=== PATIENT | male | born 1955 | race Caucasian/White ===

== ENCOUNTER → 2020-10-25 12:14 | Outpatient (CLI) | payer OTHER, MEDICAID, SELFPAY ==
--- NOTE | 2020-10-25 12:17 | DI.RAD.S_ITS ---
PROCEDURE: XR CHEST 2V INDICATIONS: cough TECHNIQUE: 2 views of the chest were acquired. COMPARISON: [facility] ([facility]), CR, XR CHEST 2V, 08/25/2020, 8:23. FINDINGS: Surgical changes and devices: None. Lungs and pleura: Lungs are clear. No pleural effusions or pneumothorax. Mediastinum: Mediastinal contours are normal. Heart size is normal. Bones and chest wall: No suspicious bony abnormalities. Soft tissues appear unremarkable. IMPRESSION: No acute disease. Dictated by: Lakhwinder Franz M.D. on 10/25/2020 at 13:10 Approved by: Lakhwinder Franz M.D. on 10/25/2020 at 13:11
== END ==
PROVIDERS: PCP Family Medicine; Referring Provider Internal Medicine Medical Oncology; Visit Provider Internal Medicine Medical Oncology
DX: R05 Cough (principal)
CPT/HCPCS: 71046

== ENCOUNTER → 2020-10-31 10:44 | Outpatient (CLI) | payer OTHER, MEDICAID, SELFPAY ==
--- NOTE | 2020-10-31 10:46 | DI.CT.S_ITS ---
PROCEDURE: CT CHEST ABD PEL W CON INDICATIONS: abdominal pain, night sweats, suspect lymphoma TECHNIQUE: After the administration of oral and intravenous contrast, axial sections acquired from the supraclavicular neck to the pubic symphysis. Coronal and sagittal reformats were performed. For radiation dose reduction, the following was used: automated exposure control, adjustment of mA and/or kV according to patient size. COMPARISON: [facility], CT, KIDNEY/ URETER/BLADDER, 07/27/2012, 9:03. FINDINGS: Image quality: Excellent. CHEST: Lower Neck: No enlarged lymph nodes. Thyroid: Within normal limits. Axillae: No enlarged lymph nodes. Chest Wall: Unremarkable. Lungs and Airways: No consolidation. Pulmonary nodules are as follows: Nodule 1: 4 mm pulmonary nodule, right lower lobe, image 220/4. Nodule 2: 7 mm pulmonary nodule, left upper lobe, image 112/4. 4 mm pulmonary nodule, right upper lobe, image 173/4. Pleura: No pneumothorax or pleural effusions. Heart: Heart size is normal. No pericardial effusion. Mild coronary artery calcifications. Thoracic Vessels: The aorta and pulmonary arteries demonstrate normal size. Mediastinum and Sherley: There is shotty mediastinal adenopathy. No definitely abnormally sized lymph nodes are identified. There are more lymph nodes than typically seen.. Esophagus: No wall thickening. No hiatal hernia. ABDOMEN: Liver: Diffusely inhomogeneous enhancement pattern without focal mass identified. Gallbladder: Mild diffuse gallbladder wall thickening, a nonspecific finding Biliary ducts: Unremarkable. Pancreas: Unremarkable. Spleen: Development of splenomegaly. The spleen now measures 17.9 cm and is fairly heterogeneous in appearance, suspicious for involvement by lymphoma. Adrenal Glands: Unremarkable. Kidneys and Ureters: Unremarkable. Stomach and Bowel: Stomach, small bowel loops, and colon are unremarkable. Peritoneum: Minimal free fluid in the pelvis. No free air. Ventral Wall: No hernia. Abdominal Nodes: Extensive abdominal adenopathy is present. Index lesions are as follows: Portacaval lymph node, image 74/3, 3.0 x 3.7 cm. Mesenteric lymph node, image 89/3, 2.3 x 4.7 cm. Precaval lymph node, image 93/3, 5.0 x 3.9 cm. Right lower quadrant mesenteric lymph node mass, image 99/3, 5.6 x 4.5 cm. Left periaortic lymph node, image 89/3, 2.2 x 2.2 cm. This is a suitable target for CT-guided biopsy. Vessels: Aorta and inferior vena cava are normal in size. PELVIS: Pelvic Organs: Unremarkable. Bladder: Unremarkable. Pelvic Nodes: No enlarged lymph nodes. Miscellaneous: No inguinal hernias are seen. Bones: No lytic or blastic bony lesions. Chronic bilateral L4 pars defects with grade 1 anterolisthesis of L4 on L5 measuring approximately 8 mm. IMPRESSION: 1. Findings are highly consistent with lymphoma. Findings include shotty mediastinal adenopathy, development of significant splenomegaly, multiple very enlarged mesenteric lymph nodes, portacaval adenopathy, and periaortic adenopathy. 2. The measured left periaortic lymph node would be a suitable target for CT-guided retroperitoneal lymph node biopsy for tissue diagnosis. 3. The liver has a diffusely heterogeneous in enhancement pattern. This is a subtle finding. An infiltrative process is not excluded. 4. Findings were discussed with the referring clinician. Dictated by: Dakota Ghotra M.D. on 10/31/2020 at 14:36 Approved by: Dakota Ghotra M.D. on 10/31/2020 at 15:17
[2020-10-31 11:37] LABS: Alanine Aminotransferase 174 IU/L (<50); Albumin 3.8 g/dL (3.5-5.0); Albumin Globulin Ratio 1.5 (1.0-2.8); Alkaline Phosphatase 447 U/L (38-126); Aspartate Aminotransferase 179 IU/L (17-59); BUN Creatinine Ratio 17.2 (6-22); Bilirubin Total 1.2 mg/dL (0.2-1.3); Blood Urea Nitrogen 17 mg/dL (9-20); Carbon Dioxide 24 mmol/L (22-32); Chloride 101 mmol/L (98-107); Estimated Glomerular Filt Rate > 60.0 mL/min (>60); Globulin 2.5 g/dL (1.7-4.1); Glucose 102 mg/dL (80-110); HEMOLYSIS < 15 (0-50); Lactate Dehydrogenase 636 U/L (313-618); Potassium 4.1 mmol/L (3.4-5.1); Sodium 134 mmol/L (137-145); Total Protein 6.3 g/dL (6.3-8.2)
[2020-10-31 11:44] LABS: Add Manual Diff / Slide Review NO; Basophils Absolute Auto 0 /uL (0-100); Eosinophils Absolute Auto 0 /uL (0-450); Eosinophils Percent Auto 0.5 % (2-4); Hematocrit 33.9 % (41-53); Hemoglobin 11.4 g/dL (13.5-17.5); Lymphocytes Absolute Auto 800 /uL (1100-4500); Lymphocytes Percent Auto 25.6 % (25-40); Mean Corpuscular HGB Conc 33.6 % (30-36); Mean Corpuscular Hemoglobin 29.4 PG (26-34); Mean Corpuscular Volume 87.6 fL (80-100); Monocytes Absolute Auto 700 /uL (0-900); Monocytes Percent Auto 21.9 % (3-14); Neutrophils Absolute Auto 1500 /uL (1500-7000); Platelet Count 197 X10^3/uL (150-400); Red Blood Cell Count 3.87 X10^6/uL (4.5-5.9); Red Cell Distribution Width 15.9 % (11.6-14.8)
[2020-10-31 12:42] LABS: Folate 12.1 ng/mL (2.76-20.0); Vitamin B12 723 pg/mL (239-931)
[2020-11-02 12:00] LABS: Immunoglobulin A, Serum 127 mg/dL (61-437); Immunoglobulin G,Serum 544 mg/dL (603-1613); Immunoglobulin M, Serum 27 mg/dL (20-172)
[2020-11-02 16:17] LABS: Albumin 3.2 g/dL (2.9-4.4); Alpha-1-Globulin 0.4 g/dL (0.0-0.4); Alpha-2-Globulin 0.8 g/dL (0.4-1.0); Gamma Globulin 0.6 g/dL (0.4-1.8); Globulin Total 2.8 g/dL (2.2-3.9)
== END ==
PROVIDERS: PCP Family Medicine; Referring Provider Internal Medicine Medical Oncology; Visit Provider Internal Medicine Medical Oncology
DX: R63.4 Abnormal weight loss (principal); D72.819 Decreased white blood cell count, unspecified
CPT/HCPCS: 36415; 71260; 74177; 80053; 82607; 82746; 82784; 83615; 84155; 84165; 85025; 86334; 88184; Q9967

== ENCOUNTER → 2020-11-07 14:13 | Outpatient (CLI) | payer OTHER, MEDICAID, SELFPAY ==
[2020-11-07 14:48] LABS: COVID19 -Nasal RAPID Negative (Negative)
== END ==
PROVIDERS: PCP Family Medicine; Visit Provider Surgery
DX: Z01.812 Encounter for preprocedural laboratory examination (principal); Z20.822 Contact with and (suspected) exposure to COVID-19
CPT/HCPCS: 87635; C9803

== ENCOUNTER 2020-11-08 06:38 | Day surgery (SDC) | payer OTHER, MEDICAID, SELFPAY ==
[2020-11-06 12:20] VITALS: BMI 26.6
[2020-11-08] VITALS (9 sets, daily range): BP systolic 92–133; BP diastolic 48–79; PULSE 71–95; RESP 10–16; TEMP 36.2–36.9; O2SAT 93–97; BMI 25.0
--- NOTE | 2020-11-08 | DI.RAD.S_ITS ---
PROCEDURE: XR CHEST 1V INDICATIONS: PORT A CATH TECHNIQUE: One view of the chest was acquired. COMPARISON: [facility], CR, XR CHEST 2V, 10/25/2020, 12:14. FINDINGS: Surgical changes and devices: Interval placement of right tunneled port device with distal tip projecting over the lower SVC. Lungs and pleura: Minimal streaky left basilar opacities likely representing atelectasis. No focal consolidations. Lungs are otherwise clear. No pleural effusions or pneumothorax. Mediastinum: Mediastinal contours appear normal. Heart size is normal. Bones and chest wall: No suspicious bony lesions. Overlying soft tissues appear unremarkable. IMPRESSION: Interval placement of right tunneled port device with the distal tip of the catheter projecting over the lower SVC. No pneumothorax. Minimal streaky left basilar opacities likely representing atelectasis. Dictated by: Sung Katz M.D. on 11/08/2020 at 10:29 Approved by: Sung Katz M.D. on 11/08/2020 at 10:31
--- NOTE | 2020-11-08 | PATH_ITS ---
[facility] Accession Number: [id number] . 01 Material submitted: . PART A: lymph node - ABDOMINAL MESENTERIC NODE PART B: lymph node - ABDOMINAL MESENTERIC NODE . 01 Diagnosis: A, B. Abdominal Mesenteric Lymph Nodes, Excision: T-cell/histocyte-rich Large B-cell Lymphoma, see microscopic description. V 11/16/2020 1441 Local . 01 Electronically signed: . Ilana Ahumada MD, Pathologist NPI- [id number] . 01 Gross description: . A. Received in formalin, labeled abdominal mesenteric node consists of a 2.5 x 2.0 x 0.8 cm hoover-pink disrupted fragment of soft tissue, which is serially sectioned and entirely submitted in cassettes A1-A3. B. Received in B fixative and consists of a 2.0 x 1.5 x 0.9 cm hoover fragment of soft tissue, which is inked blue, serially sectioned, and entirely submitted in cassettes B1-B2. . Also received is one fresh slide and one slide in reagent alcohol 95%, labeled abdominal mesenteric node. The slides are forwarded to histology. ([id number]) /[facility] 11/09/2020 1109 Local . 01 Microscopic: . Microscopic examination of the mesenteric lymph nodes reveals that the normal architecture is effaced by nodular lymphoid infiltrates composed of few dispersed large, atypical and pleomorphic lymphocytes embedded in a background of predominantly small lymphocytes (T-cell type, see below immunohistochemistry) and histiocytes. Those lymphoid nodules are by fibrosis. . To determine the origin (B cell, T cell, etc.) of those large atypical lymphocytes, immunostains are performed with the following results: . CD20 (blocks A1 and B2): Large atypical lymphocytes positive. PAX5 (blocks A1 and B2): Large atypical lymphocytes positive. OCT2 (block A1): Large atypical lymphocytes positive. BOB1 (block A1): Large atypical lymphocytes weakly positive. BCL6 (block A1): Large atypical lymphocytes positive. CD45 (block A1): Large atypical lymphocytes positive. CD15 (blocks A1 and B2): Large atypical lymphocytes negative (few scattered small granulocytes positive). CD30 (blocks A1 and B2): Large atypical lymphocytes negative (rare background activated lymphocytes positive). CD3 (blocks A1 and B2): Large atypical lymphocytes negative (background small lymphocytes positive, T-lymphocytes). CD10: Atypical large lymphocytes negative. CD4: Atypical large lymphocytes negative, background T lymphocytes predominantly positive. CD8: Atypical large lymphocytes negative, fewer background T lymphocytes positive. CD5: Atypical large lymphocytes negative (background T lymphocytes positive). CD7: Atypical large lymphocytes negative (background T lymphocytes positive). CD68: Background histiocytes positive. BUCKY: Large atypical lymphocytes negative. ALK1: Large atypical lymphocytes negative. CD21: Few residual follicular dendritic cells positive. Proliferation marker Ki-67 variably positive, approximately 20-30% (large atypical lymphocytes positive). STEVE in situ hybridization: Large atypical lymphocytes and background lymphocytes negative (with appropriate U6 RNA positive and negative controls). . In summary, the above immunohistochemistry, along with morphology supports the diagnosis of T-cell/histocyte-rich large B-cell lymphoma. . The large atypical lymphocyte immunohistochemical profile (CD20+/PAX5+/OCT2+/BOB1+/BCL6+) supports germinal center B-cell origin. . The atypical large lymphocytes are negative for CD15 and CD30; these results exclude the possibility of classical Hodgkin lymphoma. The atypical large lymphocytes are negative for the T-cell markers CD3, CD4, CD5, CD7, and CD8 (without loss of erickson T-cell antigen expression). These results do not support T-cell lymphoma. There are some CD4+ T-lymphocytes surrounding the large atypical B-cells. . Of note, there are few residual follicular dendritic cells present (highlighted by CD21 immunostain) raising the possibility that this large B-cell lymphoma may have transformed from nodular lymphocyte predominant Hodgkin lymphoma (rather than de faheem large B-cell lymphoma). . This case has also been reviewed by hematopathologist, Dr. Shanice Manzo, who agrees with the interpretation. . The case has been discussed, preliminary and final findings, with Dr. Musa Gillespie, on 11/13/20 and 11/16/2020, at 11:45 a.m. . . * This test was developed and its performance characteristics determined by [facility]. It has not been cleared or approved by the U.S. Food and Drug Administration. The FDA has determined that such clearance or approval is not necessary. This test is used for clinical purposes. It should not be regarded as investigational or for research. . 01 Pathologist provided ICD-10: C83.30 . 01 CPT . 777889, 909070, J79661, W48162, 449487, A19843 Performed at: 01 [facility] [address] [place] [address], [place], [place] [id number] MD Arvind Winslow MD Phone: [phone]
--- NOTE | 2020-11-08 07:11 | P.HP_ITS ---
History of Present Illness History of Present Illness Date Patient Seen: 11/08/20 Time Patient Seen: 07:11 Chief complaint: SDC Narrative: Alexander is a 65-year-old man referred by Oncology for Port-A-Cath placement and excisional biopsy of lymph node. It is suspected that he has lymphoma. He had a interventional radiology procedure to sample a periaortic lymph node but this was not successful and further lymph node tissue has been requested. He has never had previous abdominal surgery or an indwelling venous catheter. Patient History Medical History Complete tear of left rotator cuff History of seizure Leukopenia Surgical History H/O repair of rotator cuff Family & Social History Social History: household members spouse Tobacco & Substance use: Smoking Status Never smoker Meds Home Medications and Allergies Home Medications Medication Instructions Recorded Confirmed Type tadalafil 20 mg tablet 20 mg PO DAILY PRN 06/15/20 11/08/20 History Cough Syrup Wiith Codeine 1 cap PRN PRN 11/07/20 11/08/20 History Allergies Allergy/AdvReac Type Severity Reaction Status Date / Time No Known Drug Allergies Allergy Verified 11/08/20 06:54 Exam Narrative Exam Narrative: Constitutional-he is oriented to person, place and time. No appa rent distress Cardiovascular- regular rate, no peripheral edema Pulmonary-unlabored respiratory effort, no audible wheezing Abdominal-soft, non-tender, non-distended Musculoskeletal-no cyanosis or clubbing Neurological-nonfocal, normal strength throughout, Skin-warm and dry Assessment & Plan Assessment and plan (1) Lymphadenopathy: Status: Acute Assessment & Plan narrative: 65-year-old man with lymphadenopathy suspected lymphoma here for an diagnostic laparoscopy with excisional biopsy of abdominal lymph nodes and Port-A-Cath placement. Technical details of the procedure were discussed with the patient. Operative risks including bleeding, infection, damage to surrounding structures, device malfunction, intestinal injury were discussed. His questions have been answered he is in agreement with this plan. Will proceed. Time Spent With Patient Critical Care time: I spent a total of [] minutes of critical care time on this patient's care today; this time is exclusive of procedural time.
[2020-11-08] MEDS: LACTATED RINGERS 1,000 ML 100 ML IV ×2 (07:14→08:52)
[2020-11-08] MEDS: ACETAMINOPHEN 325 MG TABLET 975 MG PO (07:19)
[2020-11-08] MEDS: GABAPENTIN 300 MG CAPSULE PO (07:19)
[2020-11-08] MEDS: CEFAZOLIN 1 GM VIAL 2 GM IV (07:53)
--- NOTE | 2020-11-08 08:10 | SUR.OPER ---
Supine on padded OR bed, head on pillow, arms padded and tucked at sides, legs uncrossed, safety belt at thigh, tape over blanket over lower legs .
[2020-11-08] MEDS: BUPIVACAINE 0.25% (PF) VIAL 30 ML INJ (08:24)
[2020-11-08] MEDS: HEPARIN 5,000 UNIT, SODIUM CHLORIDE 0.9% 50 ML IV (08:25)
--- NOTE | 2020-11-08 09:47 | PM.OP.1 ---
Operative Date/Time/Diagnoses Date of procedure: 11/08/20 Time of procedure: 09:47 Pre-op diagnosis: Lymphadenopathy Post-op diagnosis: same Procedure & Clinicians Procedure: Port-A-Cath placement. Diagnostic laparoscopy excisional biopsy of mesenteric lymph node Same procedure as scheduled: Yes Indications: Presumed lymphoma. Referred for Port-A-Cath placement and biopsy of mesenteric lymph node Surgeon: Moses Salmeron Click Yes if Unassisted: Yes Anesthesia Type: General Operative Notes Findings: Tip of the catheter within the SVC. Mesenteric lymphadenopathy Specimen(s): other (Abdominal mesenteric lymph node) Estimated Blood Loss (mL): 30 Procedure in detail: Patient was brought to the operating room placed supine on table. Bilateral lower extremity compressive devices were applied. General anesthesia was induced and he was intubated with an LMA. He was then prepped and draped in usual sterile fashion. Time-out was performed ensure the correct patient procedure necessary equipment within the operating room. He received 2 g of Ancef prior to incision. Under ultrasound guidance the right internal jugular vein was accessed under direct visualization. The guidewire was then threaded through the needle. Its placement was then confirmed using fluoroscopy. The dilator was then placed over the guidewire. The catheter was then inserted through the sheath. Placement was again confirmed with fluoroscopy. A subcutaneous pocket was made in the right chest wall. The tunneler device was used to move the catheter from the neck to the chest pocket. The port was attached after it was primed with heparined saline. The port was tested to ensure that it flushed easily and had good blood return. The port was then secured to the underlying fascia using interupted 0 Prolene suture. Hemostasis was achieved. The wound was irrigated with sterile saline. The subcutaneous tissues were reapproximated with the 3 0 Vicryl and then skin closed with 4-0 Monocryl. The skin was sealed with Dermabond. The patient was then re-prepped and draped for the abdominal procedure. An infraumbilical incision was made the fascia was elevated incised the abdomen was entered atraumatically. A 10 mm balloon trocar blunt was then placed into the abdomen and pneumoperitoneum was established. A 5 mm port was then placed in the left lower quadrant and the suprapubic space. Inspection of the abdomen demonstrated no evidence of injury upon entry. There was significant mesenteric lymphadenopathy. Specifically mesentery for the small bowel. A point in the central abdomen was selected the mesentery was carefully skeletonized with the LigaSure. A sizable lymph node was identified and dissected out circumferentially careful to preserve the blood supply to the supplied small bowel. Mesenteric node was entirely excised and then was removed from the abdomen using the Endo-Catch. Hemostasis was observed of the abdomen was irrigated with 1 L of sterile saline. The small bowel was then re-examined was well-perfused. The abdomen was desufflated the umbilical fascia was closed with Vicryl suture in [id number] fashion and the skin incisions were closed with Monocryl followed by Dermabond. Patient tolerated procedure well extubated transferred to recovery room stable condition. Complications: none Post-operative Condition: stable Disposition: same day surgery
--- NOTE | 2020-11-08 09:55 | SUR.PHASEI ---
Received to PACU after general anesthesia. Airway patent, self maintained. Report received from JANNETTE Mann and Dr Watts.
[2020-11-08] MEDS: OXYCODONE IR 5 MG TABLET PO (10:12)
[2020-11-08] MEDS: fentaNYL 100 MCG/2 ML INJ IV (10:12)
--- NOTE | 2020-11-08 18:22 | PM.CALLCOV.1 ---
Call Coverage Note Note Date of Patient Contact: 11/08/20 Time of Patient Contact: 18:22 Narrative of Care Provided: Spoke with patients . Apparently he fell at home feels weak and has been unable to urinate. I instructed them to come to the emergency room for further evaluation.
--- NOTE | 2020-11-08 20:38 | PM.HP.1 ---
History of Present Illness History of Present Illness Date Patient Seen: 11/08/20 Time Patient Seen: 20:38 Date of Onset of Symptoms: 11/08/20 Chief complaint: [facility] [place] Patient History Medical History Complete tear of left rotator cuff History of seizure Leukopenia Surgical History H/O repair of rotator cuff Comment: Underwent laparoscopic mesenteric lymph node biopsy earlier today. Earlier this evening experinced weakness, passed out and fell. Came to ED and found to be mildly hypotensive and a decreased Hgb. CT scan showed some blood in the abdomen. Family & Social History Social History: household members spouse Tobacco & Substance use: Smoking Status Never smoker alcohol intake current alcohol intake frequency a few times a week Substance Use Type does not use Meds Home Medications and Allergies Home Medications Medication Instructions Recorded Confirmed Type tadalafil 20 mg tablet 20 mg PO DAILY PRN 06/15/20 11/08/20 History Cough Syrup Wiith Codeine 1 cap PRN PRN 11/07/20 11/08/20 History acetaminophen 325 mg capsule 650 mg PO QID PRN #60 cap 11/08/20 Rx (Tylenol) docusate sodium 100 mg capsule 100 mg PO BID #30 cap 11/08/20 Rx (Colace) oxycodone 5 mg tablet See Rx Instructions .ROUTE 11/08/20 Rx .COMPLEX PRN #30 tab Allergies Allergy/AdvReac Type Severity Reaction Status Date / Time No Known Drug Allergies Allergy Verified 11/08/20 06:54 Review of Systems Review of Systems ROS: Yes All systems reviewed with the patient and are negative except as otherwise documented Gastrointestinal Gastrointestinal: Reports abdominal pain Genitourinary Genitourinary: Reports difficulty urinating Exam Vital Signs (past 8 hours): Oxygen Delivery Method Room Air Const General: cooperative and comfortable Orientation: alert and awake HENVA Head: normal to inspection Eyes General: appearance normal, both eyes and all related structures Neck Neck: normal visual inspection Other: dry dressing to right neck Chest Chest: normal inspection of the chest Other: dry dressing to right chest Resp Effort & Inspection: normal respiratory effort Auscultation: clear to auscultation bilaterally Cardio Rate: regular rate Rhythm: regular rhythm GI Inspection: normal to inspection Palpation: soft Other: dry dressing to abdomen, mild bruising around umbilicus Skin General: dry skin and warm Neuro General: patient alert Cognition: normal cognition Speech: speech normal Extrem General: normal to inspection Psych Mental Status: mental status grossly normal Speech and Movement: speech and movement normal Affect: normal affect Attitude: cooperative Thought Process: normal Thought Content: normal Judgment: judgment good Assessment & Plan Assessment & Plan narrative: Post-Op Bleed Admit, transfuse 2 units PRBC, follow H/H Time Spent With Patient Time with patient: 30 to 49 minutes with 50% spent counseling/coordinating care Critical Care time: I spent a total of [] minutes of critical care time on this patient's care today; this time is exclusive of procedural time.
== END 2020-11-08 11:12 | disposition home or self-care (01) ==
PROVIDERS: PCP Family Medicine; Referring Provider Surgery; Visit Provider Surgery
PROC: (CPT 38570; principal; 2020-11-08 07:45)
PROC: (CPT 49320; 2020-11-08 07:45)
DX: C83.33 Diffuse large B-cell lymphoma, intra-abdominal lymph nodes (principal); Z45.2 Encounter for adjustment and management of vascular access device; Z20.822 Contact with and (suspected) exposure to COVID-19
CPT/HCPCS: 38570; 36561; 71045; 76000; J0330; J0690; J1100; J1644; J1885; J2405; J2704; J3010

== ENCOUNTER 2020-11-08 18:15 | Inpatient (IN) | payer OTHER, MEDICAID, SELFPAY ==
[2020-11-08] VITALS (21 sets, daily range): BP systolic 87–122; BP diastolic 51–69; PULSE 67–87; RESP 15–20; TEMP 36.3–36.8; O2SAT 95–100; BMI 24.9; BMI 26.8
--- NOTE | 2020-11-08 18:27 | DI.CT.S_ITS ---
PROCEDURE: CT HEAD/BRAIN WO CON INDICATIONS: fall syncope TECHNIQUE: Noncontrast 4.5 mm thick angled axial sections acquired from the foramen magnum to the vertex, with coronal and sagittal reformats. For radiation dose reduction, the following was used: automated exposure control, adjustment of mA and/or kV according to patient size. COMPARISON: None. FINDINGS: Image quality: Excellent. CSF spaces: Basal cisterns are patent. No extra-axial fluid collections. Ventricles are normal in size and shape. Brain: No midline shift. No intracranial masses or hemorrhage. Blanco-white matter interface is normal. Skull and face: Calvarium and visualized facial bones are intact, without suspicious lesions. Sinuses: Visualized sinuses and mastoids are clear. IMPRESSION: No acute intracranial abnormality. Dictated by: Tin Lezama M.D. on 11/08/2020 at 19:20 Approved by: Tin Lezama M.D. on 11/08/2020 at 19:21
--- NOTE | 2020-11-08 18:27 | DI.CT.S_ITS ---
PROCEDURE: CT CHEST ABD PEL W CON INDICATIONS: syncope, new lymphoma, surgery today TECHNIQUE: After the administration of oral and intravenous contrast, axial sections acquired from the supraclavicular neck to the pubic symphysis. Coronal and sagittal reformats were performed. For radiation dose reduction, the following was used: automated exposure control, adjustment of mA and/or kV according to patient size. COMPARISON:[facility], CT, CT CHEST ABD PEL W CON, 10/31/2020, 11:48. FINDINGS: Image quality: Excellent. CHEST: Lower Neck: No enlarged lymph nodes. Thyroid: Within normal limits. Axillae: No enlarged lymph nodes. Chest Wall: Interval placement of a right chest port with catheter tip in the superior vena cava. Surrounding subcutaneous air is seen related to recent postoperative changes. Lungs and Airways: There is atelectasis at the lung bases. No acute airspace consolidation is seen. Stable 4 mm nodule at the right lower lobe (171/3). Stable 6 mm pulmonary nodule at the left upper lobe (93/3). Stable 4 mm nodule at the right upper lobe (140/3). Pleura: Small bilateral pleural effusions. No pneumothorax. Heart: Heart size is normal. No pericardial effusion. Mild coronary artery calcifications. Thoracic Vessels: The aorta and pulmonary arteries demonstrate normal size. Mediastinum and Sherley: No enlarged lymph nodes. Esophagus: No wall thickening. No hiatal hernia. ABDOMEN: Liver: Diffusely heterogeneous enhancement pattern of the liver is redemonstrated. Gallbladder: Unremarkable. Biliary ducts: Unremarkable. Pancreas: Unremarkable. Spleen: Splenomegaly is redemonstrated with heterogeneous enhancement, not significantly changed when compared to the CT from 10/31/2020. Adrenal Glands: Unremarkable. Kidneys and Ureters: Unremarkable. Stomach and Bowel: The majority of the bowel is decompressed. Peritoneum: There is a small amount of free fluid throughout the abdomen with foci of intraperitoneal air, consistent with recent postsurgical changes. Linear soft tissue foci within the collection could represent decompressed bowel loops, although thrombosed blood products or peritoneal implants are not excluded. Ventral Wall: No hernia. Subcutaneous soft tissue edema is seen in the anterior abdominal wall. Abdominal Nodes: Bulky retroperitoneal and mesenteric lymphadenopathy is again seen including a confluent moi mass in the small bowel mesentery measuring 5.2 x 3.5 cm. Additional lymph nodes described in the prior CT from 10/31/2020 do not appear significantly changed in size. Vessels: Aorta and inferior vena cava are normal in size. PELVIS: Pelvic Organs: Unremarkable. Bladder: Unremarkable. Pelvic Nodes: No enlarged lymph nodes. Miscellaneous: Small left inguinal hernia containing fat. No suspicious osseous lesions. 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 IMPRESSION: 1. Postsurgical changes from surgical biopsy with interval development of a small amount of ascites throughout the abdomen and pelvis. The fluid measures slightly greater than simple fluid density with areas of soft tissue density. Findings are suspicious for blood-tinged fluid with areas of thrombosed blood products. No active contrast extravasation is seen. Foci of postsurgical gas are seen within the peritoneal cavity. Recommend correlation with clinical findings and hemoglobin levels. 2. Postsurgical changes from recent right chest port placement 3. Bulky abdominal lymphadenopathy the, splenomegaly, and heterogeneous enhancement of the liver do not appear significantly changed when compared to the CT from 10/31/2020, again highly suspicious for lymphoma. Findings were discussed with the referring physician, Dr. Ozuna, by telephone on 11/08/2020 at 7:49 PM. Dictated by: Tin Lezama M.D. on 11/08/2020 at 19:25 Approved by: Tin Lezama M.D. on 11/08/2020 at 19:54
--- NOTE | 2020-11-08 18:30 | ED_ITS ---
HPI - Syncope General Chief Complaint: Dizziness Stated Complaint: Surgical Complications Time Seen by Provider: 11/08/20 18:21 Source: patient Mode of arrival: Wheelchair Limitations: no limitations History of Present Illness HPI narrative: Patient is a 65-year-old male with recent evaluation for lymphoma. Today he had an excisional biopsy of mesenteric lymphnode and port placement. He was released from the hospital around noon today. He went home laid on the couch then suddenly felt like he was going to have a lot of diarrhea. He stood up got very dizzy lightheaded fell down hit his head. He is pale now and generally weak. Not on any antiplatelet or anticoagulation medication. No evidence of trauma. Has no significant abdominal pain nausea or vomiting. Related Data Home Medications Medication Instructions Recorded Confirmed tadalafil 20 mg tablet 20 mg PO DAILY PRN 06/15/20 11/08/20 Cough Syrup Wiith Codeine 1 cap PRN PRN 11/07/20 11/08/20 Previous Rx's Medication Instructions Recorded acetaminophen 325 mg capsule 650 mg PO QID PRN #60 cap 11/08/20 (Tylenol) docusate sodium 100 mg capsule 100 mg PO BID #30 cap 11/08/20 (Colace) oxycodone 5 mg tablet See Rx Instructions .ROUTE 11/08/20 .COMPLEX PRN #30 tab Allergies Allergy/AdvReac Type Severity Reaction Status Date / Time No Known Drug Allergies Allergy Verified 11/08/20 06:54 Review of Systems Review of Systems Narrative: GENERAL: Denies chills, fatigue, malaise, fever, sweats, travel HEENT: Denies sinus pain, ear pain, sore throat, difficulty swallowing, neck pain RESPIRATORY: Denies dyspnea, cough, wheezing, hemoptysis, sputum. CARDIOVASCULAR: Denies chest pain, palpitations, orthopnea, edema GASTROINTESTINAL: Denies nausea, vomiting, abdominal pain, diarrhea, constipation, melena. : Denies dysuria, frequency, incontinence, hematuria, urinary retention, flank pain. MUSCULOSKELETAL: Denies weakness, joint pain, or bony pain SKIN: No rash, no erythema, no pruritus NEUROLOGIC: Syncope, no LOC PSYCHIATRIC: No concerning psychosocial issues. 12 point review of systems is negative except for those stated above and HPI Patient History Medical History Complete tear of left rotator cuff History of seizure Leukopenia Surgical History H/O repair of rotator cuff Social History household members: spouse Smoking Status: Never smoker alcohol intake: current Smoking Status: Never smoker alcohol intake frequency: a few times a week Substance Use Type: does not use Exam Initial Vital Signs Initial Vital Signs: Vital Signs Temperature 97.4 F L 11/08/20 18:16 Pulse Rate 67 11/08/20 18:16 Respiratory Rate 20 11/08/20 18:16 Pulse Oximetry 95 11/08/20 18:16 GENERAL: Pale weak 65-year-old male HEENT: Head atraumatic,EOMI, pupils reactive, face symmetric, [moist] mucous membranes CARDIOVASCULAR: Regular rate and rhythm without murmurs, rubs or gallops. RESPIRATORY: Breath sounds equal bilaterally, no wheezes rales or rhonchi. ABDOMEN: Soft, nontender incision site clean and dry mild contusion around site. EXTREMITIES: Normal range of motion, no clubbing or edema. Neurovascularly intact NEUROLOGICAL: Alert and oriented x4. Generally weak but moving all extremities SKIN: Warm, dry, no laceration, no petechiae, no rashes or lesions. Procedures FAST Exam FAST Exam 1: Fluid in Morison's pouch: Yes Fluid in Splenorenal Junction: No Fluid around bladder, Transverse view: No Fluid around bladder, Sagittal view: No Course Orders Ordered: ED Orders 11/08/20 18:23 Complete Blood Count AUTO DIFF Stat Comprehensive Metabolic Panel Stat Lactate (Lactic Acid) Stat Lipase Stat PT [Prothrombin Time INR] Stat Packed Cells Stat Partial Thromboplastin Time Stat Troponin & CK Cardiac Panel Stat Type and Screen Stat 11/08/20 18:27 CT chest abd pel w con Stat CT head/brain wo con Stat 11/08/20 18:28 EKG-12 Lead Stat 11/08/20 19:58 COVID19 - ADMIT ([employer] swab/PCR) Stat Sodium Chloride (Normal Saline 0.9%) 1,000 mls @ 60 mls/hr IV CONT MOUNIKA Last Admin: 11/08/20 22:39 Dose: 60 mls/hr Documented by: DENNY Morphine Sulfate (Morphine 2 Mg/Ml Inj) 2 mg IV Q2HR PRN PRN Reason: Pain, Moderate (4-6) Last Admin: 11/09/20 00:18 Dose: 2 mg Documented by: Admin: 11/08/20 22:36 Dose: 2 mg Documented by: DENNY Ondansetron HCl (Ondansetron 4 Mg/2 Ml Inj) 4 mg IV Q4HR PRN PRN Reason: Nausea And Vomiting Discontinued Medications Sodium Chloride (Normal Saline 0.9%) 1,000 mls @ 1,000 mls/hr IV CONT MOUNIKA Last Infusion: 11/08/20 19:53 Dose: 0 mls/hr Documented by: Admin: 11/08/20 18:51 Dose: 1,000 mls/hr Documented by: SHERRI Vital Signs Vital signs: Vital Signs - 8 hr 11/08/20 19:18 11/08/20 19:19 11/08/20 19:30 Temperature Pulse Rate 73 72 70 Respiratory Rate 20 Blood Pressure 89/51 L 91/53 L Pulse Oximetry 99 99 100 11/08/20 19:45 11/08/20 20:00 11/08/20 20:15 Temperature Pulse Rate 69 73 74 Respiratory Rate Blood Pressure 94/52 L 93/56 L 122/59 L Pulse Oximetry 99 98 98 11/08/20 20:30 11/08/20 20:45 11/08/20 20:57 Temperature Pulse Rate 70 71 73 Respiratory Rate Blood Pressure 105/51 L 98/57 L 93/57 L Pulse Oximetry 98 97 97 11/08/20 20:59 11/08/20 21:00 11/08/20 21:15 Temperature 97.9 F Pulse Rate 73 72 74 Respiratory Rate 18 Blood Pressure 93/57 L 96/53 L 102/57 L Pulse Oximetry 96 96 11/08/20 21:16 11/08/20 21:30 11/08/20 21:40 Temperature 97.6 F 98.0 F Pulse Rate 74 72 76 Respiratory Rate 17 20 Blood Pressure 96/58 L 91/56 L 104/64 Pulse Oximetry 96 96 97 MDM - Syncope Lab Data Result diagrams: 11/09/20 00:50 11/08/20 18:23 Labs: Lab Results 11/08/20 11/08/20 11/08/20 Range/Units 18:23 18:23 18:23 WBC 4.8 (4.5-11.0) X10^3/uL RBC 2.61 L (4.5-5.9) X10^6/uL Hgb 7.6 L (13.5-17.5) g/dL Hct 23.1 L (41-53) % MCV 88.8 (80-100) fL MCH 29.3 (26-34) PG MCHC 32.9 (30-36) % RDW 16.4 H (11.6-14.8) % Plt Count 192 (150-400) X10^3/uL Neut % (Auto) 57.6 (50-75) % Lymph % (Auto) 32.9 (25-40) % Harlan % (Auto) 9.1 (3-14) % Eos % (Auto) 0.0 L (2-4) % Baso % (Auto) 0.4 (0-2) % Neut # (Auto) 2700 (4732-1392) /uL Lymph # (Auto) 1600 (5062-1510) /uL Harlan # (Auto) 400 (0-900) /uL Eos # (Auto) 0 (0-450) /uL Baso # (Auto) 0 (0-100) /uL PT (10.1-12.7) SECONDS INR (0.9-1.3) APTT (26.4-36.2) SECONDS Sodium 134 L (137-145) mmol/L Potassium 4.9 (3.4-5.1) mmol/L Chloride 102 (98-107) mmol/L Carbon Dioxide 21 L (22-32) mmol/L BUN 25 H (9-20) mg/dL Creatinine 1.29 H (0.66-1.25) mg/dL Estimated GFR 56.1 L (>60) mL/min BUN/Creatinine Ratio 19.4 (6-22) Glucose 190 H (80-110) mg/dL Lactate (0.7-2.1) mmol/L Calcium 9.3 (8.4-10.2) mg/dL Total Bilirubin 1.2 (0.2-1.3) mg/dL AST 179 H (17-59) IU/L ALT 129 H (<50) IU/L Alkaline Phosphatase 383 H (38-126) U/L Total Creatine Kinase 21 L (55-170) U/L CK-MB (CK-2) TNP CK-MB (CK-2) Rel Index TNP Troponin I < 0.012 (0.01-0.034) ng/mL Total Protein 5.2 L (6.3-8.2) g/dL Albumin 3.0 L (3.5-5.0) g/dL Globulin 2.2 (1.7-4.1) g/dL Albumin/Globulin Ratio 1.4 (1.0-2.8) Lipase 36 (23-300) U/L SARS-CoV-2 (PCR) (Negative) Blood Type A Positive Antibody Screen Negative Crossmatch See Detail 11/08/20 11/08/20 11/08/20 Range/Units 18:23 18:23 19:58 WBC (4.5-11.0) X10^3/uL RBC (4.5-5.9) X10^6/uL Hgb (13.5-17.5) g/dL Hct (41-53) % MCV (80-100) fL MCH (26-34) PG MCHC (30-36) % RDW (11.6-14.8) % Plt Count (150-400) X10^3/uL Neut % (Auto) (50-75) % Lymph % (Auto) (25-40) % Harlan % (Auto) (3-14) % Eos % (Auto) (2-4) % Baso % (Auto) (0-2) % Neut # (Auto) (7363-4378) /uL Lymph # (Auto) (4163-6591) /uL Harlan # (Auto) (0-900) /uL Eos # (Auto) (0-450) /uL Baso # (Auto) (0-100) /uL PT 13.4 H (10.1-12.7) SECONDS INR 1.2 (0.9-1.3) APTT 38 H (26.4-36.2) SECONDS Sodium (137-145) mmol/L Potassium (3.4-5.1) mmol/L Chloride (98-107) mmol/L Carbon Dioxide (22-32) mmol/L BUN (9-20) mg/dL Creatinine (0.66-1.25) mg/dL Estimated GFR (>60) mL/min BUN/Creatinine Ratio (6-22) Glucose (80-110) mg/dL Lactate 4.5 H* (0.7-2.1) mmol/L Calcium (8.4-10.2) mg/dL Total Bilirubin (0.2-1.3) mg/dL AST (17-59) IU/L ALT (<50) IU/L Alkaline Phosphatase (38-126) U/L Total Creatine Kinase (55-170) U/L CK-MB (CK-2) CK-MB (CK-2) Rel Index Troponin I (0.01-0.034) ng/mL Total Protein (6.3-8.2) g/dL Albumin (3.5-5.0) g/dL Globulin (1.7-4.1) g/dL Albumin/Globulin Ratio (1.0-2.8) Lipase (23-300) U/L SARS-CoV-2 (PCR) Negative (Negative) Blood Type Antibody Screen Crossmatch 11/08/20 Range/Units 21:57 WBC (4.5-11.0) X10^3/uL RBC (4.5-5.9) X10^6/uL Hgb (13.5-17.5) g/dL Hct (41-53) % MCV (80-100) fL MCH (26-34) PG MCHC (30-36) % RDW (11.6-14.8) % Plt Count (150-400) X10^3/uL Neut % (Auto) (50-75) % Lymph % (Auto) (25-40) % Harlan % (Auto) (3-14) % Eos % (Auto) (2-4) % Baso % (Auto) (0-2) % Neut # (Auto) (2117-5098) /uL Lymph # (Auto) (0537-6921) /uL Harlan # (Auto) (0-900) /uL Eos # (Auto) (0-450) /uL Baso # (Auto) (0-100) /uL PT (10.1-12.7) SECONDS INR (0.9-1.3) APTT (26.4-36.2) SECONDS Sodium (137-145) mmol/L Potassium (3.4-5.1) mmol/L Chloride (98-107) mmol/L Carbon Dioxide (22-32) mmol/L BUN (9-20) mg/dL Creatinine (0.66-1.25) mg/dL Estimated GFR (>60) mL/min BUN/Creatinine Ratio (6-22) Glucose (80-110) mg/dL Lactate 3.0 H (0.7-2.1) mmol/L Calcium (8.4-10.2) mg/dL Total Bilirubin (0.2-1.3) mg/dL AST (17-59) IU/L ALT (<50) IU/L Alkaline Phosphatase (38-126) U/L Total Creatine Kinase (55-170) U/L CK-MB (CK-2) CK-MB (CK-2) Rel Index Troponin I (0.01-0.034) ng/mL Total Protein (6.3-8.2) g/dL Albumin (3.5-5.0) g/dL Globulin (1.7-4.1) g/dL Albumin/Globulin Ratio (1.0-2.8) Lipase (23-300) U/L SARS-CoV-2 (PCR) (Negative) Blood Type Antibody Screen Crossmatch Imaging Data CT scan - abdomen/pelvis: Radiologist's Impression: PROCEDURE:? CT CHEST ABD PEL W CON ? INDICATIONS:? syncope, new lymphoma, surgery today ? TECHNIQUE:? After the administration of oral and intravenous contrast, axial sections acquired from the supraclavicular neck to the pubic symphysis.? Coronal and sagittal reformats were performed.? For radiation dose reduction, the following was used:? automated exposure control, adjustment of mA and/or kV according to patient size.? ? COMPARISON:[facility], CT, CT CHEST ABD PEL W CON, 10/31/2020, 11:48. ? FINDINGS:? Image quality:? Excellent.? ? CHEST: Lower Neck: No enlarged lymph nodes.? Thyroid:? Within normal limits. Axillae: No enlarged lymph nodes. Chest Wall:? Interval placement of a right chest port with catheter tip in the superior vena cava.? Surrounding subcutaneous air is seen related to recent postoperative changes. ? Lungs and Airways:? There is atelectasis at the lung bases.? No acute airspace consolidation is seen.? Stable 4 mm nodule at the right lower lobe (171/3).? Stable 6 mm pulmonary nodule at the left upper lobe (93/3).? Stable 4 mm nodule at the right upper lobe (140/3). Pleura:? Small bilateral pleural effusions.? No pneumothorax. ? Heart: Heart size is normal.? No pericardial effusion.? Mild coronary artery calcifications. Thoracic Vessels: The aorta and pulmonary arteries demonstrate normal size.? Mediastinum and Shelrey: No enlarged lymph nodes.? Esophagus: No wall thickening.? No hiatal hernia. ? ? ABDOMEN: Liver:? Diffusely heterogeneous enhancement pattern of the liver is redemonstrated. Gallbladder:? Unremarkable. Biliary ducts:? Unremarkable.? ? Pancreas:? Unremarkable.? ? Spleen:? Splenomegaly is redemonstrated with heterogeneous enhancement, not significantly changed when compared to the CT from 10/31/2020. Adrenal Glands:? Unremarkable.? ? Kidneys and Ureters:? Unremarkable.? ? ? Stomach and Bowel:? The majority of the bowel is decompressed.? Peritoneum:? There is a small amount of free fluid throughout the abdomen with foci of intraperitoneal air, consistent with recent postsurgical changes.? Linear soft tissue foci within the collection could represent decompressed bowel loops, although thrombosed blood products or peritoneal implants are not excluded. ? Ventral Wall: ? No hernia.? Subcutaneous soft tissue edema is seen in the anterior abdominal wall. Abdominal Nodes:? Bulky retroperitoneal and mesenteric lymphadenopathy is again seen including a confluent moi mass in the small bowel mesentery measuring 5.2 x 3.5 cm.? Additional lymph nodes described in the prior CT from 10/31/2020 do not appear significantly changed in size.? Vessels:? Aorta and inferior vena cava are normal in size.? ? PELVIS: Pelvic Organs:? Unremarkable.? ? Bladder:? Unremarkable.? ? Pelvic Nodes: No enlarged lymph nodes.? Miscellaneous:? Small left inguinal hernia containing fat. No suspicious osseous lesions.? 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 ? IMPRESSION:? ? 1.? Postsurgical changes from surgical biopsy with interval development of a small amount of ascites throughout the abdomen and pelvis.? The fluid measures slightly greater than simple fluid density with areas of soft tissue density.? Findings are suspicious for blood-tinged fluid with areas of thrombosed blood products.? No active contrast extravasation is seen.? Foci of postsurgical gas are seen within the peritoneal cavity.? Recommend correlation with clinical findings and hemoglobin levels. ? 2.? Postsurgical changes from recent right chest port placement ? 3.? Bulky abdominal lymphadenopathy the, splenomegaly, and heterogeneous enhancement of the liver do not appear significantly changed when compared to the CT from 10/31/2020, again highly suspicious for lymphoma. ? Findings were discussed with the referring physician, Dr. Ozuna, by telephone on 11/08/2020 at 7:49 PM. ? ? ? Dictated by: Tin Lezama M.D. on 11/08/2020 at 19:25 ? ? CT scan - head: Radiologist's Impression: PROCEDURE:? CT HEAD/BRAIN WO CON ? INDICATIONS:? fall syncope ? TECHNIQUE:? Noncontrast 4.5 mm thick angled axial sections acquired from the foramen magnum to the vertex, with coronal and sagittal reformats.? For radiation dose reduction, the following was used:? automated exposure control, adjustment of mA and/or kV according to patient size.? ? COMPARISON:? None. ? FINDINGS:? Image quality:? Excellent.? ? CSF spaces:? Basal cisterns are patent.? No extra-axial fluid collections.? Ventricles are normal in size and shape.? ? Brain:? No midline shift.? No intracranial masses or hemorrhage.? Blanco-white matter interface is normal.? ? Skull and face:? Calvarium and visualized facial bones are intact, without suspicious lesions.? ? Sinuses:? Visualized sinuses and mastoids are clear.? ? IMPRESSION:? No acute intracranial abnormality. ? ? Dictated by: Tin Lezama M.D. on 11/08/2020 at 1 ECG Data Interpretation: Normal sinus rhythm rate 75 AZ interval 138 QRS [address] changes or T-wave inversions MDM Narrative Medical decision making narrative: Patient is pale hypotensive recent surgery. No significant abdominal pain. Quick bedside fast exam done by myself does show fluid in right upper quadrant. CT confirms fluid throughout abdomen and pelvis possibly blood products. Hemoglobin has dropped significantly since October 31, previously 11.4 today 7.6. Blood pressure remained systolic in the 90s map greater than 65. He is given initial L of normal saline and and blood products have been ordered. Dr. Alston, surgery has been notified of patient and findings. In ED to seen evaluate patient. At this time transfuse blood and he will admit to monitor patient. Blood pressure improved patient remained stable. Critical Care Time Critical Care Time Critical Care Time: Yes Total Critical Care Time: 30 Attestation: The high probability of a clinically significant, sudden or life threatening deterioration of the [cardiovascular] system(s) required my full and direct attention, intervention and personal management. The aggregate critical care time was 30 minutes. This time is in addition to time spent performing reported procedures but includes the following: [x] Data Review and interpretation [x] Patient assessment and monitoring of vital signs [x] Documentation [x] Medication orders and management Discharge Plan Departure Patient Disposition: Admitted As Inpatient Clinical Impression: Post-operative haemorrhage Qualifiers: Laterality: unspecified laterality Admit Date/Time: 11/08/20 22:00 Admit Provider: Anselmo Alston
[2020-11-08 18:45] LABS: Add Manual Diff / Slide Review NO; Basophils Absolute Auto 0 /uL (0-100); Basophils Percent Auto 0.4 % (0-2); Eosinophils Absolute Auto 0 /uL (0-450); Hematocrit 23.1 % (41-53); Hemoglobin 7.6 g/dL (13.5-17.5); Lymphocytes Absolute Auto 1600 /uL (1100-4500); Lymphocytes Percent Auto 32.9 % (25-40); Mean Corpuscular HGB Conc 32.9 % (30-36); Mean Corpuscular Hemoglobin 29.3 PG (26-34); Mean Corpuscular Volume 88.8 fL (80-100); Monocytes Absolute Auto 400 /uL (0-900); Monocytes Percent Auto 9.1 % (3-14); Neutrophils Absolute Auto 2700 /uL (1500-7000); Neutrophils Percent Auto 57.6 % (50-75); Platelet Count 192 X10^3/uL (150-400); Red Blood Cell Count 2.61 X10^6/uL (4.5-5.9); Red Cell Distribution Width 16.4 % (11.6-14.8); White Blood Cell Count 4.8 X10^3/uL (4.5-11.0)
[2020-11-08 18:47] LABS: Alanine Aminotransferase 129 IU/L (<50); Albumin Globulin Ratio 1.4 (1.0-2.8); Alkaline Phosphatase 383 U/L (38-126); Aspartate Aminotransferase 179 IU/L (17-59); BUN Creatinine Ratio 19.4 (6-22); Bilirubin Total 1.2 mg/dL (0.2-1.3); Blood Urea Nitrogen 25 mg/dL (9-20); Calcium 9.3 mg/dL (8.4-10.2); Carbon Dioxide 21 mmol/L (22-32); Chloride 102 mmol/L (98-107); Creatine Kinase 21 U/L (55-170); Estimated Glomerular Filt Rate 56.1 mL/min (>60); Globulin 2.2 g/dL (1.7-4.1); Glucose 190 mg/dL (80-110); HEMOLYSIS < 15 (0-50); Lipase 36 U/L (23-300); Potassium 4.9 mmol/L (3.4-5.1); Sodium 134 mmol/L (137-145); Total Protein 5.2 g/dL (6.3-8.2)
[2020-11-08] MEDS: SODIUM CHLORIDE 0.9% 1,000 ML 1000 ML IV (18:51)
[2020-11-08 18:59] LABS: Troponin I < 0.012 ng/mL (0.01-0.034)
[2020-11-08 20:08] LABS: INR 1.2 (0.9-1.3); Prothrombin Time 13.4 SECONDS (10.1-12.7)
[2020-11-08 20:11] LABS: PTT Partial Thromboplastin Tim 38 SECONDS (26.4-36.2)
[2020-11-08 20:36] LABS: Lactate (Lactic Acid) 4.5 mmol/L (0.7-2.1)
--- NOTE | 2020-11-08 20:38 | P.HP_ITS ---
History of Present Illness History of Present Illness Date Patient Seen: 11/08/20 Time Patient Seen: 20:38 Date of Onset of Symptoms: 11/08/20 Chief complaint: [facility] [place] Patient History Medical History Complete tear of left rotator cuff History of seizure Leukopenia Surgical History H/O repair of rotator cuff Comment: Underwent laparoscopic mesenteric lymph node biopsy earlier today. Earlier this evening experinced weakness, passed out and fell. Came to ED and found to be mildly hypotensive and a decreased Hgb. CT scan showed some blood in the abdomen. Family & Social History Social History: household members spouse Tobacco & Substance use: Smoking Status Never smoker alcohol intake current alcohol intake frequency a few times a week Substance Use Type does not use Meds Home Medications and Allergies Home Medications Medication Instructions Recorded Confirmed Type tadalafil 20 mg tablet 20 mg PO DAILY PRN 06/15/20 11/08/20 History Cough Syrup Wiith Codeine 1 cap PRN PRN 11/07/20 11/08/20 History acetaminophen 325 mg capsule 650 mg PO QID PRN #60 cap 11/08/20 Rx (Tylenol) docusate sodium 100 mg capsule 100 mg PO BID #30 cap 11/08/20 Rx (Colace) oxycodone 5 mg tablet See Rx Instructions .ROUTE 11/08/20 Rx .COMPLEX PRN #30 tab Allergies Allergy/AdvReac Type Severity Reaction Status Date / Time No Known Drug Allergies Allergy Verified 11/08/20 06:54 Review of Systems Review of Systems ROS: Yes All systems reviewed with the patient and are negative except as otherwise documented Gastrointestinal Gastrointestinal: Reports abdominal pain Genitourinary Genitourinary: Reports difficulty urinating Exam Vital Signs (past 8 hours): Oxygen Delivery Method Room Air Const General: cooperative and comfortable Orientation: alert and awake HENCA Head: normal to inspection Eyes General: appearance normal, both eyes and all related structures Neck Neck: normal visual inspection Other: dry dressing to right neck Chest Chest: normal inspection of the chest Other: dry dressing to right chest Resp Effort & Inspection: normal respiratory effort Auscultation: clear to auscultation bilaterally Cardio Rate: regular rate Rhythm: regular rhythm GI Inspection: normal to inspection Palpation: soft Other: dry dressing to abdomen, mild bruising around umbilicus Skin General: dry skin and warm Neuro General: patient alert Cognition: normal cognition Speech: speech normal Extrem General: normal to inspection Psych Mental Status: mental status grossly normal Speech and Movement: speech and movement normal Affect: normal affect Attitude: cooperative Thought Process: normal Thought Content: normal Judgment: judgment good Assessment & Plan Assessment & Plan narrative: Post-Op Bleed Admit, transfuse 2 units PRBC, follow H/H Time Spent With Patient Time with patient: 30 to 49 minutes with 50% spent counseling/coordinating care Critical Care time: I spent a total of [] minutes of critical care time on this patient's care today; this time is exclusive of procedural time.
[2020-11-08 21:15] LABS: COVID19 - ADMIT (NP swab/PCR) Negative (Negative)
[2020-11-08 22:04] LABS: Reflexed Lactate in 2 Hours Y
[2020-11-08] MEDS: MORPHINE 2 MG/ML INJ IV (22:36)
[2020-11-08] MEDS: SODIUM CHLORIDE 0.9% 1,000 ML 60 ML IV (22:39)
--- NOTE | 2020-11-08 23:35 | PC.NURSE ---
Admit/Evening Shift Note- Patient arrived to room via stretcher from ER at 2140. Admit questions done, medications reviewed, physical assessment done, and skin check completed. Patient alert and oriented and able to make needs known to staff. Patient oriented to bed and bed controls, room, lights, phone, menu, bathroom, and call romano/tv remote. patient agrees to call for assistance. call romano and phone within reach. will continue to monitor.
[2020-11-09] VITALS (9 sets, daily range): BP systolic 100–114; BP diastolic 56–66; PULSE 79–100; RESP 16–20; TEMP 36.6–37.3; O2SAT 96–99
[2020-11-09] MEDS: MORPHINE 2 MG/ML INJ IV ×3 (00:18→17:52)
[2020-11-09 01:02] LABS: Hemoglobin 7.9 g/dL (13.5-17.5)
[2020-11-09 01:14] LABS: Hematocrit 23.8 % (41-53)
--- NOTE | 2020-11-09 01:20 | PC.NURSE ---
H&H @ 0050 7.9 and 23.8. Provider notified per request (HCT <8.0). Provider ordered next unit of blood to be administered.
[2020-11-09] MEDS: ACETAMINOPHEN 325 MG TABLET 650 MG PO ×2 (09:44→17:53)
[2020-11-09 11:25] LABS: Hematocrit 26.6 % (41-53); Hemoglobin 8.9 g/dL (13.5-17.5)
--- NOTE | 2020-11-09 11:48 | PM.PNPO.1 ---
Subjective Subjective Date Patient Seen: 11/09/20 Time Patient Seen: 11:48 Interval history: Minimal abdominal pain. No nausea vomiting. Hypotension resolved. Urinating Exam Vital Signs (past 8 hours): - 11/09/20 03:53 11/09/20 08:00 Temperature 99.2 F 98.7 F Pulse Rate 79 100 H Respiratory Rate 20 19 Blood Pressure 114/66 112/66 Pulse Oximetry 98 96 Oxygen Delivery Method Room Air Oxygen Flow Rate 0 Narrative Exam Narrative: General adult male alert oriented no acute distress Abdomen no peritonitis. Small amount of bruising the umbilical incision. Nondistended Objective Labs Result Diagrams: 11/09/20 11:16 11/08/20 18:23 Labs: Laboratory Results - last 24 hr 11/08/20 11/08/20 11/08/20 18:23 18:23 18:23 WBC 4.8 RBC 2.61 L Hgb 7.6 L Hct 23.1 L MCV 88.8 MCH 29.3 MCHC 32.9 RDW 16.4 H Plt Count 192 Neut % (Auto) 57.6 Lymph % (Auto) 32.9 [place] % (Auto) 9.1 Eos % (Auto) 0.0 L Baso % (Auto) 0.4 Neut # (Auto) 2700 Lymph # (Auto) 1600 [place] # (Auto) 400 Eos # (Auto) 0 Baso # (Auto) 0 PT INR APTT Sodium 134 L Potassium 4.9 Chloride 102 Carbon Dioxide 21 L BUN 25 H Creatinine 1.29 H Estimated GFR 56.1 L BUN/Creatinine Ratio 19.4 Glucose 190 H Lactate Calcium 9.3 Total Bilirubin 1.2 AST 179 H ALT 129 H Alkaline Phosphatase 383 H Total Creatine Kinase 21 L CK-MB (CK-2) TNP CK-MB (CK-2) Rel Index TNP Troponin I < 0.012 Total Protein 5.2 L Albumin 3.0 L Globulin 2.2 Albumin/Globulin Ratio 1.4 Lipase 36 SARS-CoV-2 (PCR) Blood Type A Positive Antibody Screen Negative Crossmatch See Detail 11/08/20 11/08/20 11/08/20 18:23 18:23 19:58 WBC RBC Hgb Hct MCV MCH MCHC RDW Plt Count Neut % (Auto) Lymph % (Auto) [place] % (Auto) Eos % (Auto) Baso % (Auto) Neut # (Auto) Lymph # (Auto) [place] # (Auto) Eos # (Auto) Baso # (Auto) PT 13.4 H INR 1.2 APTT 38 H Sodium Potassium Chloride Carbon Dioxide BUN Creatinine Estimated GFR BUN/Creatinine Ratio Glucose Lactate 4.5 H* Calcium Total Bilirubin AST ALT Alkaline Phosphatase Total Creatine Kinase CK-MB (CK-2) CK-MB (CK-2) Rel Index Troponin I Total Protein Albumin Globulin Albumin/Globulin Ratio Lipase SARS-CoV-2 (PCR) Negative Blood Type Antibody Screen Crossmatch 11/08/20 11/09/20 11/09/20 21:57 00:50 04:28 WBC RBC Hgb 7.9 L 9.0 L Hct 23.8 L 27.0 L MCV MCH MCHC RDW Plt Count Neut % (Auto) Lymph % (Auto) [place] % (Auto) Eos % (Auto) Baso % (Auto) Neut # (Auto) Lymph # (Auto) [place] # (Auto) Eos # (Auto) Baso # (Auto) PT INR APTT Sodium Potassium Chloride Carbon Dioxide BUN Creatinine Estimated GFR BUN/Creatinine Ratio Glucose Lactate 3.0 H Calcium Total Bilirubin AST ALT Alkaline Phosphatase Total Creatine Kinase CK-MB (CK-2) CK-MB (CK-2) Rel Index Troponin I Total Protein Albumin Globulin Albumin/Globulin Ratio Lipase SARS-CoV-2 (PCR) Blood Type Antibody Screen Crossmatch 11/09/20 11:16 WBC RBC Hgb 8.9 L Hct 26.6 L MCV MCH MCHC RDW Plt Count Neut % (Auto) Lymph % (Auto) [place] % (Auto) Eos % (Auto) Baso % (Auto) Neut # (Auto) Lymph # (Auto) [place] # (Auto) Eos # (Auto) Baso # (Auto) PT INR APTT Sodium Potassium Chloride Carbon Dioxide BUN Creatinine Estimated GFR BUN/Creatinine Ratio Glucose Lactate Calcium Total Bilirubin AST ALT Alkaline Phosphatase Total Creatine Kinase CK-MB (CK-2) CK-MB (CK-2) Rel Index Troponin I Total Protein Albumin Globulin Albumin/Globulin Ratio Lipase SARS-CoV-2 (PCR) Blood Type Antibody Screen Crossmatch [facility] Medical History Complete tear of left rotator cuff History of seizure Leukopenia Surgical History H/O repair of rotator cuff Social History household members: spouse Smoking Status: Never smoker alcohol intake: current Assessment & Plan Post-op Postoperative Postoperative status narrative: This is a 65-year-old man who is postoperative day 1 status post laparoscopic excision of mesenteric lymph node who was readmitted for postoperative hemorrhage. I suspect that his hemorrhage has stopped at this point. He is hemodynamically stable hypotension has resolved and he responded appropriately to blood transfusion. -okay for diet as tolerated -trend hematocrit -SCDs no chemical VTE prophylaxis
--- NOTE | 2020-11-09 12:21 | PC.NURSE ---
Day shift: Pt OOB to chair and steady on his feet. VS remain WNL. Has been tolerating water, jello and applesauce. Eating lunch now and denies any nausea. Pain well controlled with PO Tylenol per APR. Calm and cooperative w/ care. Will continue w/ plan of care. Call light in reach.
--- NOTE | 2020-11-09 12:42 | CM.IDA ---
Initial DCP Assessment Note Patient is a 65 yo male, resident of [facility]. Presents postoperative day 1 status post laparoscopic excision of mesenteric lymph node who was readmitted for postoperative hemorrhage. Patient w/recent dx of lymphoma, type still unknown. Patient admitted by surgery for medical management of symptomatic blood loss. According to Dr Salmeron, patient okay for diet as tolerated and continue to monitor hematocrit. PCP: Max Umana Payer: Jose Miguel/YURY Met w/patient, introduced role. Patient indp. and active at baseline. Explains he lives w/spouse on [facility]. His two sons are attending college. Patient expects his chemotherapy course to begin over the next month for recently diagnosed Lymphoma. Patient in good spirits today. 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 Patient eager to return home once medically cleared. PILAR Fabian Discharge Planning/Care Management CM Discharge Assessment Start: 11/09/20 12:40 Freq: Status: Active Protocol: Document 11/09/20 12:40 ANA (Rec: 11/09/20 12:42 ANA [id number]) Discharge Planning Assessment Assigned Jewelry Bearing Maker PILAR Blum DPOA/Assigned Designee Name Alexandra Ulloa, spouse Contact Information [phone] Advance Directives? Yes Advance Directives on File No History Provided By Patient Prior Living Arrangements House Household Members spouse Type of transporation used prior to Drives own vehicle admit Independent with ADL's Yes: h/o shoulder injuries at work Is patient alert and oriented? Yes Barriers to Discharge No Discharge Plan Home Transportation Arrangement Spouse Referrals Initiated None needed Whiteboard Updated in Patient Room with Yes name and ext. # of Jewelry Bearing Maker
--- NOTE | 2020-11-09 13:43 | PC.NURSE ---
Day shift: Pt has been OOB and had a shower this afternoon. Not lightheaded and steady on his feet. His ABD and around the umbilicus has bruises and is firm to the touch. Pt reports that he is feeling better.
[2020-11-09 21:09] LABS: Hematocrit 23.1 % (41-53); Hemoglobin 7.9 g/dL (13.5-17.5)
[2020-11-09] MEDS: HYDROCODONE/ACET 5/325 TABLET 1 TAB PO (22:57)
[2020-11-10 03:42] VITALS: BP 111/69; PULSE 87; RESP 18; TEMP 36.7; O2SAT 98
[2020-11-10 05:18] LABS: Hemoglobin 7.6 g/dL (13.5-17.5)
[2020-11-10] MEDS: HYDROCODONE/ACET 5/325 TABLET 1 TAB PO ×2 (05:52→13:04)
--- NOTE | 2020-11-10 07:01 | PC.NURSE ---
At approx 0500, H&H lab draw resulted in 7.6/23.0. Provider ANGE contacted & made aware of lab result as well as presence of bruising around umbilicus and increased bruising to shaft of penis. VSS, BP soft, pain controlled but present in abd. Provider ordered 1 unit PRBC to be transfused over 3 hours.
[2020-11-10 07:30] VITALS: BP 122/70; PULSE 93; RESP 16; TEMP 36.8
[2020-11-10 08:27] VITALS: BP 116/71; PULSE 89; RESP 18; TEMP 37.1
[2020-11-10 11:15] VITALS: BP 123/75; PULSE 71; RESP 16; RESP 18; TEMP 37; O2SAT 98
--- NOTE | 2020-11-10 11:35 | DIET.CONS2 ---
Addendum entered by Carolyn Verdin 11/10/20 11:55: Monitoring: PO, ONS tolerance, refeeding labs, weight, possibly blood sugars Original Note: Dietary Inpatient Consultation Note Admission Date: 11/08/2020 22:00 65 y/o M re-admit for postop hemorrhage, recent evaluation for lymphoma. Evaluated for malnutrition today by RDN. Endorses -23# over 2-3 months, indicating 12% significant wt loss over 3 months. Endorses GI symptoms diarrhea and constipation. Endorses low appetite and low intake prior to admit. Eating mostly salad, oatmeal, other vegetables for easy digestion per his report. Upon nutrition focused physical exam Abad displays muscle/fat loss consistent with severe protein calorie malnutrition. Severe muscle wasting of quaker, clavicle, shoulder, interosseous, and scapula present. Endorses noticeable weakness c muscle loss. Review of labs, one elevated glucose of 180 mg/dL upon admit. RDN wondering if this is related to physiological stress or underlying blood sugar issue. Denies any h/o of hyperglycemia. May benefit from HgA1c to determine if this is chronic or acute. Today he has questions about how to regain weight safely and maintain weight during possible future chemo tx. Diet: 11/09/20 Lunch General (Regular) Diet Diet Modifications: Nutrition Percent Meal Consumed 100% 11/09/20 18:26 Percent Meal Consumed 70 11/09/20 13:00 Nutrition Diagnosis: Severe protein calorie malnutrition r/t limited appetite aeb significant weight loss and muscle wasting Interventions: 1. ONS BID ordered 2. Nutrition education regarding safe weight gain and maintenance during potential chemo Electronically Signed by: Carolyn Verdin 11/10/20 11:35 Clinical Dietitian [address] [address]
--- NOTE | 2020-11-10 11:50 | PC.NURSE ---
Day shift note: 1 unit of PRBCs initiated, consent in chart. Educated regarding s/sx of transfusion reaction. VSS and afebrile. At 1115, blood transfusion completed. VSS and afebrile. Patient up OOB to BR, no dizzines or SOB. Bruising to lower abdomen as previously noted and marked, without any changes. Patient states abdomen less distended than previous day. Persistent sporadic dry cough noted. Voiding. Patient very emotional and tearful due to hospitalization/situation. Per Blood transfusion order, no quantity of units of blood, no order of repeat labs. This RN to clarify with provider. Verbal order for 1 unit to previous shift RN. Spouse at bedside providing supportive care. Calls appropriate for staff assistance.
--- NOTE | 2020-11-10 13:56 | PM.DS.1 ---
History of Present Illness History of Present Illness Date Patient Seen: 11/10/20 Time Patient Seen: 13:56 Date of Onset of Symptoms: 11/08/20 Chief complaint: Surgical Complications Narrative: Presented to ED with post operative bleed Discharge Providers Provider Date of admission: 11/08/20 22:00 Discharge Date: 11/10/20 Primary care physician: Max Umana MD Consults: 11/08/20 22:42 Consult to Dietitian, Adult Routine Comment: Reason For Exam: malnurished Discharge provider: Anselmo Alston MD Summary Hospital Course Discharge Diagnosis: Post operative bleed Hospital Course: Admitted to hospital with symptomatic anemia from post operative bleeding. Transfused with ultimately 3 U PRBC and became asymptomatic Doing well today, no light headedness or dizziness. Status at Discharge Cognitive/behavioral status at discharge: oriented Functional status at discharge: independent ambulation Overall status at discharge: patient is back to baseline Time Spent with Patient Time spent: Greater than 30 minutes Exam Vital Signs (past 8 hours): - 11/10/20 07:30 11/10/20 08:27 11/10/20 11:15 Temperature 98.3 F 98.8 F 98.6 F Pulse Rate 93 H 89 71 Respiratory Rate 16 18 18 Blood Pressure 122/70 116/71 123/75 Pulse Oximetry 98 Oxygen Delivery Method Room Air Oxygen Flow Rate 0 Const General: cooperative and healthy appearing Orientation: alert and awake HENIA Head: normal to inspection Eyes General: appearance normal, both eyes and all related structures Pupils: PERRL EOM: EOM intact bilaterally Neck Neck: full ROM and trachea midline Other: Dry dressing to right neck Chest Chest: normal inspection of the chest Other: Dry dressing to right upper chest Resp Effort & Inspection: normal respiratory effort Auscultation: clear to auscultation bilaterally Cardio Rate: regular rate Rhythm: regular rhythm GI Inspection: abdominal wall ecchymosis and distended (mildly) Palpation: soft Other: Dry dressing to umbilicus Skin General: dry skin and warm Neuro General: patient alert and patient awake Cognition: normal cognition Speech: speech normal Extrem General: normal to inspection and no pedal edema Psych Appearance: grossly normal Mental Status: mental status grossly normal Speech and Movement: speech and movement normal Affect: normal affect Attitude: cooperative Thought Process: normal Thought Content: normal Judgment: judgment good Objective Labs Result Diagrams: 11/10/20 04:55 11/08/20 18:23 Labs: Laboratory Results - last 24 hr 11/08/20 11/09/20 11/10/20 18:23 21:00 04:55 Hgb 7.9 L 7.6 L Hct 23.1 L 23.0 L Blood Type A Positive Antibody Screen Negative Crossmatch See Detail [facility] Medical History Complete tear of left rotator cuff History of seizure Leukopenia Surgical History H/O repair of rotator cuff Social History household members: spouse Smoking Status: Never smoker alcohol intake: current Discharge Assessment & Plan Assessment and Plan Assessment: Post operative symptomatic anemia secondary to post operative bleeding Plan of Treatment: Admitted, transfused, improved Discharge Plan Discharge Plan Patient Disposition: Home Provider Discharge Comment: Follow up With Dr. Salmeron next week Discharge orders & Medications Prescriptions: Continued Cough Syrup Wiith Codeine 1 cap PRN PRN (Reason: Cough) RF: 0 tadalafil 20 mg tablet 20 mg PO DAILY PRN (Reason: Sexual Activity) RF: 0 Follow up/Referrals: Max Umana MD [Primary Care Provider] - Diet/Activity/Treatments Diet: Diet as Tolerated Activity: As Eveline Skin/Wound/Dressing Care Report to your healthcare provider any signs of infection, such as:: chills, fever, increased pain, unusual drainage and unusual redness Dressing: May remove at home Discharge Data Primary Care Provider: Max Umana
[2020-11-10] MEDS: CODEINE/GUAIFENESIN LIQUID 5ML UDC 10 ML PO (14:38)
--- NOTE | 2020-11-10 15:34 | PC.NURSE ---
Day shift note: Patient discharged home per MD order, discharge instructions given to patient and spouse. Discussed importance of F/U with Dr. Salmeron in 1 week, dressing care, and s/sx of worsening symptoms. Both verbalized understanding of instructions Home via private vehicle accompanied by spouse.
== END 2020-11-10 15:30 | disposition home or self-care (01) | DRG 813 ==
LOC: ED 19:23 → AC 22:01
PROVIDERS: Admitting Provider Surgery; Emergency Provider Emergency Medicine; PCP Family Medicine; Referring Provider Emergency Medicine; Visit Provider Surgery
DX: K91.840 Postprocedural hemorrhage of a digestive system organ or structure following a digestive system procedure (principal); D62 Acute posthemorrhagic anemia; Z68.26 Body mass index [BMI] 26.0-26.9, adult; Z20.822 Contact with and (suspected) exposure to COVID-19; E43 Unspecified severe protein-calorie malnutrition
CPT/HCPCS: 36415; 36430; 36561; 38570; 70450; 71045; 71260; 74177; 76000; 80053; 82550; 82962; 83605; 83690; 84484; 85014; 85018; 85025; 85610; 85730; 86850; 86900; 86901; 87635; 93005; 93010; 96360; 99214; 99285; 99291; C1788; C9803; P9016; J0330; J0690; J1100; J1644; J1885; J2270; J2405; J2704; J3010; Q9967

== ENCOUNTER → 2020-11-29 10:31 | Outpatient (CLI) | payer OTHER, MEDICAID, SELFPAY ==
[2020-11-08 22:02] VITALS: BMI 26.8
[2020-11-29 19:36] LABS: Add Manual Diff / Slide Review NO; Basophils Absolute Auto 0 /uL (0-100); Basophils Percent Auto 0.7 % (0-2); Eosinophils Absolute Auto 100 /uL (0-450); Eosinophils Percent Auto 1.1 % (2-4); Hematocrit 34.9 % (41-53); Hemoglobin 11.4 g/dL (13.5-17.5); Lymphocytes Absolute Auto 500 /uL (1100-4500); Lymphocytes Percent Auto 8.7 % (25-40); Mean Corpuscular HGB Conc 32.7 % (30-36); Mean Corpuscular Hemoglobin 29.9 PG (26-34); Mean Corpuscular Volume 91.6 fL (80-100); Monocytes Absolute Auto 300 /uL (0-900); Monocytes Percent Auto 5.3 % (3-14); Neutrophils Absolute Auto 4500 /uL (1500-7000); Neutrophils Percent Auto 84.2 % (50-75); Platelet Count 294 X10^3/uL (150-400); Red Blood Cell Count 3.81 X10^6/uL (4.5-5.9); Red Cell Distribution Width 16.5 % (11.6-14.8); White Blood Cell Count 5.4 X10^3/uL (4.5-11.0)
[2020-11-29 19:48] LABS: Alanine Aminotransferase 188 IU/L (<50); Albumin 3.4 g/dL (3.5-5.0); Albumin Globulin Ratio 1.5 (1.0-2.8); Alkaline Phosphatase 279 U/L (38-126); Aspartate Aminotransferase 67 IU/L (17-59); BUN Creatinine Ratio 20.8 (6-22); Bilirubin Total 0.7 mg/dL (0.2-1.3); Blood Urea Nitrogen 15 mg/dL (9-20); Calcium 9.4 mg/dL (8.4-10.2); Carbon Dioxide 27 mmol/L (22-32); Chloride 102 mmol/L (98-107); Estimated Glomerular Filt Rate > 60.0 mL/min (>60); Globulin 2.3 g/dL (1.7-4.1); Glucose 108 mg/dL (80-110); HEMOLYSIS < 15 (0-50); Potassium 4.1 mmol/L (3.4-5.1); Sodium 135 mmol/L (137-145); Total Protein 5.7 g/dL (6.3-8.2)
== END ==
PROVIDERS: PCP Physician Assistant Medical; Visit Provider Physician Assistant Medical
DX: C85.90 Non-Hodgkin lymphoma, unspecified, unspecified site (principal)
CPT/HCPCS: 80053; 85025

== ENCOUNTER → 2020-12-19 08:48 | Outpatient (CLI) | payer OTHER, MEDICAID, SELFPAY ==
[2020-11-08 22:02] VITALS: BMI 26.8
[2020-12-19 19:13] LABS: Add Manual Diff / Slide Review NO; Basophils Absolute Auto 100 /uL (0-100); Basophils Percent Auto 1.3 % (0-2); Eosinophils Absolute Auto 100 /uL (0-450); Eosinophils Percent Auto 1.5 % (2-4); Hematocrit 35.8 % (41-53); Hemoglobin 12.4 g/dL (13.5-17.5); Lymphocytes Absolute Auto 300 /uL (1100-4500); Lymphocytes Percent Auto 5.7 % (25-40); Mean Corpuscular HGB Conc 34.7 % (30-36); Mean Corpuscular Hemoglobin 31.4 PG (26-34); Mean Corpuscular Volume 90.5 fL (80-100); Monocytes Absolute Auto 100 /uL (0-900); Monocytes Percent Auto 2.9 % (3-14); Neutrophils Absolute Auto 4300 /uL (1500-7000); Neutrophils Percent Auto 88.6 % (50-75); Platelet Count 274 X10^3/uL (150-400); Red Blood Cell Count 3.95 X10^6/uL (4.5-5.9); White Blood Cell Count 4.9 X10^3/uL (4.5-11.0)
[2020-12-19 19:31] LABS: Alanine Aminotransferase 73 IU/L (<50); Albumin 3.8 g/dL (3.5-5.0); Albumin Globulin Ratio 1.6 (1.0-2.8); Alkaline Phosphatase 130 U/L (38-126); Aspartate Aminotransferase 39 IU/L (17-59); BUN Creatinine Ratio 18.9 (6-22); Bilirubin Total 0.5 mg/dL (0.2-1.3); Blood Urea Nitrogen 14 mg/dL (9-20); Calcium 9.6 mg/dL (8.4-10.2); Carbon Dioxide 30 mmol/L (22-32); Chloride 100 mmol/L (98-107); Estimated Glomerular Filt Rate > 60.0 mL/min (>60); Globulin 2.4 g/dL (1.7-4.1); Glucose 95 mg/dL (80-110); HEMOLYSIS < 15 (0-50); Potassium 4.4 mmol/L (3.4-5.1); Sodium 137 mmol/L (137-145); Total Protein 6.2 g/dL (6.3-8.2)
== END ==
PROVIDERS: PCP Physician Assistant Medical; Visit Provider Internal Medicine Medical Oncology
DX: C85.90 Non-Hodgkin lymphoma, unspecified, unspecified site (principal)
CPT/HCPCS: 80053; 85025

== ENCOUNTER → 2021-01-10 09:08 | Outpatient (CLI) | payer OTHER, MEDICAID, SELFPAY ==
[2020-11-08 22:02] VITALS: BMI 26.8
[2021-01-10 19:16] LABS: Alanine Aminotransferase 73 IU/L (<50); Albumin 3.7 g/dL (3.5-5.0); Albumin Globulin Ratio 1.7 (1.0-2.8); Alkaline Phosphatase 84 U/L (38-126); Aspartate Aminotransferase 36 IU/L (17-59); BUN Creatinine Ratio 26.3 (6-22); Bilirubin Total 0.5 mg/dL (0.2-1.3); Blood Urea Nitrogen 21 mg/dL (9-20); Calcium 9.3 mg/dL (8.4-10.2); Carbon Dioxide 29 mmol/L (22-32); Chloride 102 mmol/L (98-107); Estimated Glomerular Filt Rate > 60.0 mL/min (>60); Globulin 2.2 g/dL (1.7-4.1); Glucose 82 mg/dL (80-110); HEMOLYSIS < 15 (0-50); Potassium 4.2 mmol/L (3.4-5.1); Sodium 137 mmol/L (137-145); Total Protein 5.9 g/dL (6.3-8.2)
[2021-01-10 19:59] LABS: Add Manual Diff / Slide Review NO; Basophils Absolute Auto 0 /uL (0-100); Basophils Percent Auto 0.3 % (0-2); Eosinophils Absolute Auto 100 /uL (0-450); Eosinophils Percent Auto 3.7 % (2-4); Hematocrit 37.1 % (41-53); Hemoglobin 12.8 g/dL (13.5-17.5); Lymphocytes Absolute Auto 300 /uL (1100-4500); Mean Corpuscular HGB Conc 34.4 % (30-36); Mean Corpuscular Hemoglobin 31.1 PG (26-34); Mean Corpuscular Volume 90.4 fL (80-100); Monocytes Absolute Auto 100 /uL (0-900); Monocytes Percent Auto 4.2 % (3-14); Neutrophils Absolute Auto 2800 /uL (1500-7000); Neutrophils Percent Auto 81.8 % (50-75); Platelet Count 236 X10^3/uL (150-400); Red Cell Distribution Width 15.5 % (11.6-14.8); White Blood Cell Count 3.5 X10^3/uL (4.5-11.0)
== END ==
PROVIDERS: PCP Physician Assistant Medical; Visit Provider Physician Assistant Medical
DX: C85.90 Non-Hodgkin lymphoma, unspecified, unspecified site (principal)
CPT/HCPCS: 80053; 85025

== ENCOUNTER → 2021-01-31 08:07 | Outpatient (CLI) | payer MEDICARE, OTHER, MEDICAID, SELFPAY ==
[2020-11-08 22:02] VITALS: BMI 26.8
[2021-01-31 19:36] LABS: Alanine Aminotransferase 81 IU/L (<50); Albumin 3.9 g/dL (3.5-5.0); Albumin Globulin Ratio 1.6 (1.0-2.8); Alkaline Phosphatase 80 U/L (38-126); Aspartate Aminotransferase 44 IU/L (17-59); BUN Creatinine Ratio 20.3 (6-22); Bilirubin Total 0.5 mg/dL (0.2-1.3); Blood Urea Nitrogen 16 mg/dL (9-20); Calcium 9.9 mg/dL (8.4-10.2); Carbon Dioxide 30 mmol/L (22-32); Chloride 104 mmol/L (98-107); Estimated Glomerular Filt Rate > 60.0 mL/min (>60); Globulin 2.5 g/dL (1.7-4.1); Glucose 90 mg/dL (80-110); HEMOLYSIS 16 (0-50); Potassium 4.2 mmol/L (3.4-5.1); Sodium 135 mmol/L (137-145); Total Protein 6.4 g/dL (6.3-8.2)
[2021-01-31 20:09] LABS: Hematocrit 39.3 % (41-53); Mean Corpuscular HGB Conc 35.5 % (30-36); Mean Corpuscular Hemoglobin 31.8 PG (26-34); Mean Corpuscular Volume 89.7 fL (80-100); Platelet Count 230 X10^3/uL (150-400); Red Blood Cell Count 4.38 X10^6/uL (4.5-5.9); Red Cell Distribution Width 14.5 % (11.6-14.8); White Blood Cell Count 3.2 X10^3/uL (4.5-11.0)
[2021-01-31 20:12] LABS: Add Manual Diff / Slide Review YES
[2021-01-31 22:33] LABS: Neutrophils Absolute Manual 2560 /uL (3000-5900); Total Cells Counted 100
[2021-01-31 22:34] LABS: Platelet Estimate Adequate on smear; RBC Morphology Normal Morphology
== END ==
PROVIDERS: PCP Physician Assistant Medical; Visit Provider Internal Medicine Medical Oncology
DX: C85.90 Non-Hodgkin lymphoma, unspecified, unspecified site (principal)
CPT/HCPCS: 80053; 85007; 85025

== ENCOUNTER → 2021-02-21 08:39 | Outpatient (CLI) | payer MEDICARE, MEDICAID, SELFPAY ==
[2020-11-08 22:02] VITALS: BMI 26.8
[2021-02-21 19:40] LABS: Alanine Aminotransferase 54 IU/L (<50); Albumin 3.8 g/dL (3.5-5.0); Albumin Globulin Ratio 1.7 (1.0-2.8); Alkaline Phosphatase 75 U/L (38-126); Aspartate Aminotransferase 35 IU/L (17-59); BUN Creatinine Ratio 19.3 (6-22); Bilirubin Total 0.5 mg/dL (0.2-1.3); Blood Urea Nitrogen 17 mg/dL (9-20); Calcium 9.8 mg/dL (8.4-10.2); Carbon Dioxide 27 mmol/L (22-32); Chloride 105 mmol/L (98-107); Estimated Glomerular Filt Rate > 60.0 mL/min (>60); Globulin 2.3 g/dL (1.7-4.1); Glucose 103 mg/dL (80-110); HEMOLYSIS < 15 (0-50); Potassium 3.9 mmol/L (3.4-5.1); Sodium 135 mmol/L (137-145); Total Protein 6.1 g/dL (6.3-8.2)
[2021-02-21 19:45] LABS: Add Manual Diff / Slide Review NO; Basophils Absolute Auto 0 /uL (0-100); Basophils Percent Auto 0.9 % (0-2); Eosinophils Absolute Auto 0 /uL (0-450); Eosinophils Percent Auto 1.3 % (2-4); Hematocrit 39.2 % (41-53); Hemoglobin 13.6 g/dL (13.5-17.5); Lymphocytes Absolute Auto 400 /uL (1100-4500); Lymphocytes Percent Auto 13.4 % (25-40); Mean Corpuscular HGB Conc 34.7 % (30-36); Mean Corpuscular Hemoglobin 31.7 PG (26-34); Mean Corpuscular Volume 91.4 fL (80-100); Monocytes Absolute Auto 100 /uL (0-900); Monocytes Percent Auto 3.4 % (3-14); Neutrophils Absolute Auto 2500 /uL (1500-7000); Platelet Count 227 X10^3/uL (150-400); Red Blood Cell Count 4.29 X10^6/uL (4.5-5.9); Red Cell Distribution Width 14.5 % (11.6-14.8); White Blood Cell Count 3.1 X10^3/uL (4.5-11.0)
== END ==
PROVIDERS: PCP Physician Assistant Medical; Visit Provider Internal Medicine Medical Oncology
DX: C85.90 Non-Hodgkin lymphoma, unspecified, unspecified site (principal)
CPT/HCPCS: 80053; 85025

== ENCOUNTER → 2021-03-14 10:03 | Outpatient (CLI) | payer MEDICARE, OTHER, MEDICAID, SELFPAY ==
[2020-11-08 22:02] VITALS: BMI 26.8
[2021-03-14 20:09] LABS: Alanine Aminotransferase 75 IU/L (<50); Albumin 3.8 g/dL (3.5-5.0); Albumin Globulin Ratio 1.5 (1.0-2.8); Alkaline Phosphatase 83 U/L (38-126); Aspartate Aminotransferase 42 IU/L (17-59); BUN Creatinine Ratio 17.9 (6-22); Bilirubin Total 0.5 mg/dL (0.2-1.3); Blood Urea Nitrogen 15 mg/dL (9-20); Calcium 9.8 mg/dL (8.4-10.2); Carbon Dioxide 29 mmol/L (22-32); Chloride 103 mmol/L (98-107); Estimated Glomerular Filt Rate > 60.0 mL/min (>60); Globulin 2.5 g/dL (1.7-4.1); Glucose 91 mg/dL (80-110); HEMOLYSIS < 15 (0-50); Potassium 4.2 mmol/L (3.4-5.1); Sodium 135 mmol/L (137-145); Total Protein 6.3 g/dL (6.3-8.2)
[2021-03-14 20:15] LABS: Hematocrit 37.1 % (41-53); Hemoglobin 13.1 g/dL (13.5-17.5); Mean Corpuscular HGB Conc 35.3 % (30-36); Mean Corpuscular Hemoglobin 31.8 PG (26-34); Platelet Count 237 X10^3/uL (150-400); Red Blood Cell Count 4.13 X10^6/uL (4.5-5.9); Red Cell Distribution Width 14.3 % (11.6-14.8); White Blood Cell Count 2.5 X10^3/uL (4.5-11.0)
[2021-03-14 20:59] LABS: Add Manual Diff / Slide Review YES
[2021-03-14 21:04] LABS: Neutrophils Absolute Manual 2100 /uL (3000-5900); Total Cells Counted 100
[2021-03-14 21:05] LABS: RBC Morphology Normal Morphology
== END ==
PROVIDERS: PCP Physician Assistant Medical; Visit Provider Internal Medicine Medical Oncology
DX: C85.90 Non-Hodgkin lymphoma, unspecified, unspecified site (principal)
CPT/HCPCS: 80053; 85007; 85025

== ENCOUNTER → 2021-03-19 09:43 | Outpatient (CLI) | payer MEDICARE, OTHER, MEDICAID, SELFPAY ==
[2020-11-08 22:02] VITALS: BMI 26.8
[2021-03-19 19:42] LABS: COVID19 - ORCAS (NP or Nasal) Negative (Negative)
== END ==
PROVIDERS: PCP Physician Assistant Medical; Visit Provider Physician Assistant
DX: Z20.822 Contact with and (suspected) exposure to COVID-19 (principal)
CPT/HCPCS: U0003

== ENCOUNTER → 2021-07-23 09:36 | Outpatient (CLI) | payer MEDICARE, MEDICAID, SELFPAY ==
[2020-11-08 22:02] VITALS: BMI 26.8
--- NOTE | 2021-07-23 09:37 | DI.CT.S_ITS ---
PROCEDURE: CT CHEST ABD PEL W CON INDICATIONS: post chemo restaging, monitoring TECHNIQUE: After the administration of oral and intravenous contrast, axial sections acquired from the supraclavicular neck to the pubic symphysis. Coronal and sagittal reformats were performed. For radiation dose reduction, the following was used: automated exposure control, adjustment of mA and/or kV according to patient size. COMPARISON:[facility], CT, CT CHEST ABD PEL W CON, 11/08/2020, 19:02. FINDINGS: Image quality: Excellent. CHEST: Lower Neck: No enlarged lymph nodes. Thyroid: The visible portion of the thyroid gland is normal. Axillae: No enlarged lymph nodes. Chest Wall: No suspicious soft tissue masses. Right IJ MediPort. Lungs and Airways: Central and peripheral airways are patent. No bronchial wall thickening. Interval resolution of left upper lobe, right medial upper lobe, and right lower lobe nodules. 3 mm posterior right upper lobe solid nodule, 3/128, is stable. No new nodules, consolidations, or ground-glass opacities. Pleura: No pneumothorax or pleural effusions. Heart: Heart size is normal. No pericardial effusion. Thoracic Vessels: The aorta and pulmonary arteries demonstrate normal size. Mediastinum and Sherley: No enlarged lymph nodes. Esophagus: No wall thickening. No hiatal hernia. ABDOMEN: Liver: Normalized liver size. Vague wedge-shaped subcapsular hypodensity caudal tip of the right lower lobe with slight overlying capsular retraction may be a treated lesion. Gallbladder: Normal. Biliary ducts: Nondilated. Pancreas: Normal. Spleen: Decreased size with four discrete but ill-defined hypodensities, the largest in the upper pole measuring 2.4 cm in diameter. Adrenal Glands: No nodules. Kidneys and Ureters: Symmetric enhancement. No nephrolithiasis or hydronephrosis. No hydroureter. Stomach and Bowel: Stomach, small bowel loops, and colon are unremarkable. Normal appendix. Peritoneum: Resolution of ascites. No free fluid or free air. Ventral Wall: No hernia. Abdominal Nodes: Decreased size of mesenteric lymph nodes. Central moi mass now measures roughly 3.1 x 1.8 cm in the axial plane, previously about 4.4 x 5.2 cm. Interval resolution of bulky retroperitoneal adenopathy in the epigastric and periportal regions. Vessels: Aorta and inferior vena cava are normal in size. Mild abdominal aortic atherosclerotic calcification. PELVIS: Pelvic Organs: Normal size prostate gland. Bladder: No wall thickening. Pelvic Nodes: No enlarged lymph nodes. Miscellaneous: No inguinal hernias or soft tissue masses. Bones: Bilateral L4 pars defects with grade 1 anterolisthesis. No suspicious bone lesions. IMPRESSION: 1. Overall good response to therapy including resolved lung nodules, resolved pleural effusions, improved solid organ lesions in the liver and spleen, resolution of ascites, and decreased size of mesenteric and retroperitoneal adenopathy. Dictated by: Lisette Arce M.D. on 07/23/2021 at 13:37 Approved by: Lisette Arce M.D. on 07/23/2021 at 13:57
== END ==
PROVIDERS: PCP Family Medicine; Referring Provider Internal Medicine Medical Oncology; Visit Provider Internal Medicine Medical Oncology
DX: C83.30 Diffuse large B-cell lymphoma, unspecified site (principal)
CPT/HCPCS: 71260; 74177; Q9967

== ENCOUNTER → 2021-08-09 11:07 | Outpatient (CLI) | payer OTHER, SELFPAY ==
[2020-11-08 22:02] VITALS: BMI 26.8
--- NOTE | 2021-08-09 | DI.MRI.S_ITS ---
PROCEDURE: MR SHOULDER RT WO CON INDICATIONS: SPRAIN OF RIGHT SHOULDER JOINT TECHNIQUE: Noncontrast oblique coronal T2 fast spin echo with fat saturation, oblique sagittal T1 spin echo and T2 fast spin echo with fat saturation, axial T1 spin echo and T2 fast spin echo with fat saturation through the shoulder. COMPARISON: [facility], MR, SHOULDER WITHOUT CONTRAST, 05/14/2017, 12:38. [facility], CR, XR SHOULDER 2+ VIEWS RIGHT, 08/28/2017, 9:54. [facility], CR, XR SHOULDER 2+ VIEWS RIGHT, 05/27/2017, 12:03. FINDINGS: Image quality: Excellent. Rotator cuff: Postsurgical changes compatible with prior supraspinatus tendon repair noted. The repaired supraspinatus tendon is torn and retracted. The infraspinatus, and subscapularis tendons appear intact throughout. The infraspinatus and subscapularis tendons are thickened with increased internal signal compatible with mild tendinosis. There is atrophy of the visualized supraspinatus muscle. There is atrophy of the teres minor muscle suggesting quadrilateral space syndrome. Bones and bursae: No bone marrow contusions or fractures. Moderate acromioclavicular joint osteoarthritic degeneration. The acromion demonstrates conventional anatomy, without an os acromiale. Small amount of fluid noted in the subacromial/subdeltoid bursa. Capsule and soft tissues: Labrum is intact. The long head of the biceps tendon demonstrates normal location and morphology. The rotator interval appears normal, without fibrosis. The coracohumeral ligament is normal in thickness. IMPRESSION: 1. Postsurgical changes compatible with prior rotator cuff repair. 2. Torn and retracted supraspinatus tendon with supraspinatus muscle atrophy. 3. Mild infraspinatus and subscapularis tendinosis. 4. 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 Dictated by: Caty Rausch MD, PhD on 08/09/2021 at 16:12 Approved by: Caty Rausch MD, PhD on 08/13/2021 at 8:11
== END ==
PROVIDERS: PCP Family Medicine; Referring Provider Family Medicine; Visit Provider Family Medicine
DX: S46.011A Strain of muscle(s) and tendon(s) of the rotator cuff of right shoulder, initial encounter (principal); X58.XXXA Exposure to other specified factors, initial encounter
CPT/HCPCS: 73221

== ENCOUNTER → 2022-01-01 09:25 | Outpatient (CLI) | payer MEDICARE, OTHER, SELFPAY ==
[2020-11-08 22:02] VITALS: BMI 26.8
--- NOTE | 2022-01-01 09:28 | DI.CT.S_ITS ---
PROCEDURE: CT CHEST ABD PEL W CON INDICATIONS: lymphoma follow up TECHNIQUE: After the administration of oral and intravenous contrast, axial sections acquired from the supraclavicular neck to the pubic symphysis. Coronal and sagittal reformats were performed. For radiation dose reduction, the following was used: automated exposure control, adjustment of mA and/or kV according to patient size. COMPARISON: , CT, CT CHEST ABD PEL W CON, 10/31/2020, 11:48. NM, NM PET CT FUSION SKULL 2 THIGH, 04/11/2021, 11:15. , CT, CT CHEST ABD PEL W CON, 11/08/2020, 19:02. , CT, CT CHEST ABD PEL W CON, 07/23/2021, 11:22. FINDINGS: Image quality: Excellent. CHEST: Lower Neck: No enlarged lymph nodes. Thyroid: Within normal limits. Axillae: No enlarged lymph nodes. Chest Wall: Unremarkable. Lungs and Airways: Small lung nodules are unchanged in size. Nodule 1: 3 mm; right upper lobe posterior; series 3, image 100. Nodule 2: 2 mm; right upper lobe; series 3, image 54. Pleura: No pneumothorax or pleural effusions. Heart: Heart size is normal. No pericardial effusion. Mild coronary artery calcification. Thoracic Vessels: The aorta and pulmonary arteries demonstrate normal size. Mediastinum and Sherley: No enlarged lymph nodes. Esophagus: No wall thickening. Small hiatal hernia. ABDOMEN: Liver: Liver is normal in size. There is a 1 cm hypodense nodule in the inferior tip of liver, unchanged in size.. Gallbladder: Unremarkable. Biliary ducts: Unremarkable. Pancreas: Unremarkable. Spleen: There are multiple masses in spleen, increased in size since the last exam. For example, the largest lesion measures 4.1 x 5.1 cm on the current examination (series 2, image 58); previously 2.0 x 2.2 cm on 07/23/2021. Adrenal Glands: Unremarkable. Kidneys and Ureters: Unremarkable. Stomach and Bowel: Stomach, small bowel loops, and colon are unremarkable. Peritoneum: No abnormal intraperitoneal fluid. No free air. Ventral Wall: No hernia. Abdominal Nodes: Mesenteric lymphadenopathy is present, increased since the last exam. Reference lesions are listed in the following: Lymph Node 1: 2.5 x 3.5 cm; series 2, image 89; previously 1.7 x 2.6 cm. Lymph node 2: 1.4 x 2.1 cm; series 2, image 80; previously 1.0 x 1.5 cm. No enlarged retroperitoneal or iliac lymph nodes. Vessels: Aorta and inferior vena cava are normal in size. PELVIS: Pelvic Organs: Prostate is enlarged. Bladder: Unremarkable. Pelvic Nodes: No enlarged lymph nodes. Miscellaneous: No inguinal hernias are seen. Bones: Unremarkable. IMPRESSION: 1. Interval enlargement of splenic lesions consistent with refractory to treatment. 2. Increasing mesenteric lymphadenopathy. No recurrent retroperitoneal lymphadenopathy. 3. Stable hepatic lesion. 4. Stable lung nodules. Dictated by: Shane Barrientos M.D. on 01/02/2022 at 7:52 Approved by: Shane Barrientos M.D. on 01/02/2022 at 8:12
== END ==
PROVIDERS: PCP Family Medicine; Referring Provider Internal Medicine Medical Oncology; Visit Provider Internal Medicine Medical Oncology
DX: C83.30 Diffuse large B-cell lymphoma, unspecified site (principal); R91.8 Other nonspecific abnormal finding of lung field; I25.10 Atherosclerotic heart disease of native coronary artery without angina pectoris; K44.9 Diaphragmatic hernia without obstruction or gangrene; D73.89 Other diseases of spleen; R59.0 Localized enlarged lymph nodes; K76.9 Liver disease, unspecified
CPT/HCPCS: 71260; 74177; Q9967

== ENCOUNTER → 2022-08-15 09:40 | Outpatient (CLI) | payer MEDICARE, OTHER, SELFPAY ==
[2020-11-08 22:02] VITALS: BMI 26.8
[2022-08-19 17:54] LABS: CMV DNA, Quant Real Time PCR Negative (Negative)
== END ==
PROVIDERS: PCP Family Medicine; Visit Provider Internal Medicine Hematology & Oncology
DX: C83.30 Diffuse large B-cell lymphoma, unspecified site (principal); D47.Z1 Post-transplant lymphoproliferative disorder (PTLD)
CPT/HCPCS: 87497